=== PATIENT | female | born 2000 | race Caucasian/White ===

== ENCOUNTER → 2020-04-23 | Outpatient (REF) | payer OTHER | LOC: M WUC 15:55 | PROVIDERS: ATTEND Nurse Practitioner Family | DX: J00 Acute nasopharyngitis [common cold] (principal) ==

== ENCOUNTER → 2020-05-27 | Outpatient (REF) | payer OTHER ==
[2020-05-27 18:08] LABS: LUTEINIZING HORMONE 7.4 mIU/mL; PROLACTIN 8.9 NG/ML
== END ==
LOC: M PLALAB 15:25
PROVIDERS: ATTEND Nurse Practitioner Women's Health
DX: R51.9 Headache, unspecified (principal); E22.1 Hyperprolactinemia; E28.2 Polycystic ovarian syndrome

== ENCOUNTER 2020-06-26 03:24 | Day surgery (SDC) | payer OTHER ==
[~2020-06-26] VITALS: Ht 175.3 cm; Wt 70.5 kg
[2020-06-26] VITALS (9 sets, daily range): BP systolic 99–123; BP diastolic 61–78
[2020-06-26] MEDS ORDERED: ACETAMINOPHEN TAB 650MG DOSE (2X325MG) PO PRN (03:30)
[2020-06-26] MEDS ORDERED: MORPHINE 2 MG/ML 1ML VIAL (J2270) IV PRN (03:30)
[2020-06-26] MEDS ORDERED: ONDANSETRON 4MG/2ML VIAL IV PRN ×2 (03:30→11:30)
[2020-06-26] MEDS ORDERED: PREN27TA3 PO (03:46)
[2020-06-26] MEDS ORDERED: VENL150C43 PO (03:46)
[2020-06-26] MEDS ORDERED: VERA40TA PO ×2 (03:46)
[2020-06-26] MEDS: LR 1,000 ML IV SCH ×3 (03:48→19:59)
[2020-06-26] MEDS: KETOROLAC 30 MG/ML 1ML VIAL IV PRN ×4 (05:03→22:37)
[2020-06-26] MEDS ORDERED: PIPERACILLIN/TAZOBACTAM SOD 3.375 GM in D5W MINI-BAG PLUS 50 ML IV SCH (08:00)
[2020-06-26] MEDS: PERCOCET 5MG/325MG TAB PO PRN ×3 (08:14→19:59)
[2020-06-26] MEDS ORDERED: MIDAZOLAM INJ 2MG/2ML VIAL (J2250 PER 1MG) As Ordered ONE (09:11)
[2020-06-26] MEDS ORDERED: fentaNYL 250 MCG/5 ML INJECTION (J3010) As Ordered ONE (09:11)
[2020-06-26] MEDS ORDERED: propofoL 200 MG/20 ML VIAL As Ordered ONE (09:12)
[2020-06-26] MEDS ORDERED: KETOROLAC 60MG 2ML VIAL As Ordered ONE (09:12)
[2020-06-26] MEDS ORDERED: dexameTHASONE 4 MG/ML 1ML VIAL (J1100 PER 1MG) As Ordered ONE (09:12)
[2020-06-26] MEDS ORDERED: ACETAMINOPHEN 1000MG 100ML IV BTL (OFIRMEV) (J0131 PER 10MG) As Ordered ONE (09:12)
[2020-06-26] MEDS ORDERED: ROCURONIUM BROMIDE 50 MG/5 ML VIAL As Ordered ONE (09:12)
[2020-06-26] MEDS ORDERED: LIDOCAINE 2% 100MG/5ML SDV (FOR ANES.) As Ordered ONE (09:12)
[2020-06-26] MEDS ORDERED: ONDANSETRON 4MG/2ML VIAL As Ordered ONE (09:12)
[2020-06-26] MEDS ORDERED: BUPIVACAINE HCL 0.25% 10ML VIAL As Ordered ONE (10:05)
[2020-06-26] MEDS ORDERED: LIDOCAINE 1% MDV 20ML VIAL As Ordered ONE (10:05)
[2020-06-26] MEDS ORDERED: NEOSTIGMINE 10MG/10ML VIAL (J2710 PER 0.5MG) As Ordered ONE (10:21)
[2020-06-26] MEDS ORDERED: GLYCOPYRROLATE INJ 0.2 MG/ML 2 ML VIAL As Ordered ONE (10:21)
[2020-06-26] MEDS ORDERED: fentaNYL 100 MCG/2 ML INJECTION (J3010) As Ordered ONE (11:08)
[2020-06-26] MEDS: fentaNYL 100 MCG/2 ML INJECTION (J3010) IV PRN ×4 (11:10→11:25)
[2020-06-26] MEDS ORDERED: HYDROMORPHONE HCL 0.5 MG/ 0.5 ML SYRINGE (J1170 PER 1) IV PRN (11:30)
[2020-06-26] MEDS ORDERED: LR 1,000 ML IV SCH (11:30)
[2020-06-26] MEDS ORDERED: METOCLOPRAMIDE INJ 10MG/2ML VIAL (J2765 PER 1) IV PRN (11:30)
[2020-06-26] MEDS ORDERED: oxyCODONE 5MG TAB PO PRN (11:30)
[2020-06-26] MEDS: PRENATAL VITAMINS CHEWABLE TABLET PO SCH (12:19)
[2020-06-26] MEDS: VENLAFAXINE **XR** 75MG CAPSULE PO SCH (12:19)
[2020-06-26] MEDS: VERAPAMIL 40 MG TAB PO SCH ×2 (12:19→19:59)
[2020-06-26] MEDS: MIRALAX *UNIT DOSE* 17GM PACKET PO SCH ×2 (12:19→19:58)
[2020-06-27 02:00] VITALS: BP 122/62
[2020-06-27] MEDS: PERCOCET 5MG/325MG TAB PO PRN (03:16)
[2020-06-27 06:00] VITALS: BP 109/53
[2020-06-27 09:20] VITALS: BP 109/53
[2020-06-27] MEDS: VERAPAMIL 40 MG TAB PO SCH (09:20)
[2020-06-27] MEDS: VENLAFAXINE **XR** 75MG CAPSULE PO SCH (09:20)
[2020-06-27] MEDS: PRENATAL VITAMINS CHEWABLE TABLET PO SCH (09:20)
[2020-06-27] MEDS: KETOROLAC 30 MG/ML 1ML VIAL IV PRN (09:21)
[2020-06-27] MEDS: MIRALAX *UNIT DOSE* 17GM PACKET PO SCH (09:21)
[2020-06-27 10:00] VITALS: BP 125/75
[2020-06-27] MEDS ORDERED: PERCOCET PO (13:00)
--- NOTE | 2020-07-06 10:27 | ROOPDOC ---
[facility] Report Of Operation Report of Operation DATE OF PROCEDURE: 06/26/20 PREPROCEDURE DIAGNOSES: acute appendicitis POSTPROCEDURE DIAGNOSES: mildly distended appendix, no acute inflammation PROCEDURE: Diagnostic Laparoscopy, Laparoscopic appendectomy. SURGEON: Aaron Bueno MD SHIPPING AND RECEIVING: MD ANESTHESIA: General Anesthesia ESTIMATED BLOOD LOSS: Approximately 10 mL. COMPLICATIONS: none. SPECIMEN: Appendix. PROCEDURE NOTE: Patient was transferred from [facility] where she presented with exacerbation of long-standing right-sided abdominal pain and underwent evaluation and was suspected to have acute appendicitis and CT and thus transferred to our service for further care. She has mild tenderness over the right upper quadrant less so at the right lower quadrant on my exam. CT does show some mild thickening of the appendix.. DESCRIPTION OF PROCEDURE: Patient received a dose of Zosyn perioperatively.Patient was brought to the operating room, placed supine on the table. Sequential compression device placed for DVT prophylaxis. General endotracheal anesthesia started. The abdomen prepped and draped in usual sterile fashion. After a surgical timeout, we began our surgery Entry into the abdomen done through an incision at the top of the umbilicus. Veress needle inserted on a controlled fashion. Intra-abdominal placement confir med with saline drop technique. CO2 insufflation started to a pressure of 15 mmHg. Using the same incision a 5 mm port was placed under direct vision of laparoscope. Insertion site was inspected for injury and none was found. He was placed on a Trendelenburg position the right side tilted to about 30 to allow for better visualization of the appendix. 2 5 mm working ports were placed at the suprapubic area and left lower quadrant area under direct vision, an 8 mm port exchanged at the umbilical camera port site. Operative findings: No free fluid noted. Most of the small bowel was covered with omentum that does not look inflamed. Liver is mildly enlarged but relatively smooth. Gallbladder is distended, minimally thick-walled but no evidence for acute inflammation. Both left and right ovaries were visualized and noted normal for her age, mildly enlarged uterus normal for her age. Small amount of serous fluid in the pelvis. The cecum is without any inflammation. The appendix is noted to be mildly fluid distended but no active inflammation. The mesoappendix is normal and non-thickened. No evidence for any fecalith or abnormal distention of the appendix. The appendix does not look to be acutely inflamed though I do not have any other possible explanation for her right-sided abdominal pain thus I decided to go ahead with the appendectomy. The appendix was grasped to pull the base of the appendix into view. The mesoappendix was divided using Harmonic scalpel down to the base. Two PDS Endoloops were placed to ligate the appendix at its base then divided with a Harmonic Scalpel the stump cauterized. Stump appears healthy. Appendix was then delivered into an Endo Catch bag through the 8 mm umbilical port site. . After re-insufflation the surgical site was inspected for hemostasis, Surrounding areas of the abdomen and inspected for fluid collections or signs of injury. The abdomen was deflated. All ports removed. All skin incisions closed with 4-0 Monocryl in a subcuticular fashion. Steri-Strips and gauze dressing used for wound coverage. Patient was promptly awake and extubated and brought to recovery room stable. All counts of sponges and instruments verified to be correct. AARON BUENO MD Jul 06, 2020 10:27
--- NOTE | 2020-07-13 09:16 | IPNPDOC ---
Text Note Date of Service The patient was seen on 06/27/20. NOTE Doing relatively well postoperatively. She underwent laparoscopic appendectomy last night. Intraoperative findings not consistent with acute appendicitis. She has been having this right sided abdominal pain for about 3 months now. She has been afebrile. Patient looks mildly uncomfortable complaining of pain over the epigastric and right upper quadrant area. Lung sounds are clear to auscultation bilaterally without wheezing Regular heart rate and rhythm Abdomen is soft, minimally distended. She has 3 port sites covered with glue without any significant erythema, drainage or surrounding ecchymosis. Mildly tender over the right lower quadrant area without guarding Impression and plan Right-sided abdominal pain I discussed with her my intraoperative findings. I don't think she has acute appendicitis with the way the appendix looks. Her symptoms are not consistent with acute appendicitis as this has been ongoing for 3 months now. Both left and right ovaries were visualized with out any large cysts. No signs of e ndometriosis. Her gallbladder is mildly distended but thin walled. At this point she is okay to go home. She will follow-up with. An outpatient. She may need further workup with regards to her abdominal pain including ultrasound of gallbladder, HIDA scan possibly endoscopy. JAYRO VICK MD Jul 13, 2020 09:16
== END 2020-06-27 15:01 | disposition home or self-care (01) ==
LOC: M SDC 03:24 → M MS5PR 03:25 → M SDC 06-27 15:01
PROVIDERS: ATTEND Surgery
DX: K35.890 Other acute appendicitis without perforation or gangrene (principal)
CPT/HCPCS: 44970; 88304; 96365; 96375; 96376; J0131; J1100; J1885; J2250; J2405; J2543; J2710; J3010; U0002

== ENCOUNTER 2020-07-12 12:41 | Emergency (ER) | payer OTHER ==
[~2020-07-12] VITALS: Ht 175.3 cm; Wt 67.7 kg
[~2020-07-12 12:41] MED LIST: PERCOCET PO; PREN27TA3 PO; VENL150C43 PO; VERA40TA PO
[2020-07-12] MEDS ORDERED: ACET-683 PO (13:01)
[2020-07-12] MEDS ORDERED: IBUP200C25 PO (13:01)
[2020-07-12] MEDS ORDERED: HYOSPOW (13:01)
[2020-07-12 14:33] LABS: BASO % 0.5 % (0.0-1.0); EOS % 0.7 % (0.0-3.0); HEMATOCRIT 37.3 % (36.0-47.0); HEMOGLOBIN 12.2 g/dl (12.0-15.5); LYMPH # 1.6 10^3/uL (1.5-5.0); LYMPH % 28.6 % (24.0-44.0); MEAN CORPUSCULAR HEMOGLOBIN 28.7 pg (27.0-33.0); MEAN CORPUSCULAR HGB CONC 32.7 g/dl (32.0-36.5); MEAN CORPUSCULAR VOLUME 87.8 fl (80.0-96.0); MONO # 0.4 10^3/uL (0.0-0.8); MONO % 7.6 % (0.0-5.0); NEUTROPHILS # 3.4 10^3/uL (1.5-8.5); NEUTROPHILS % 62.4 % (36.0-66.0); PLATELET COUNT, AUTOMATED 260 10^3/uL (150-450); RED BLOOD COUNT 4.25 10^6/uL (4.00-5.40); WHITE BLOOD COUNT 5.5 10^3/uL (4.0-10.0)
[2020-07-12 15:00] LABS: ALBUMIN 4.3 GM/DL (3.2-5.2); ALT/SGPT 19 U/L (12-78); BILIRUBIN,DIRECT < 0.1 MG/DL (0.0-0.2); BILIRUBIN,TOTAL 0.3 MG/DL (0.2-1.0); BLOOD UREA NITROGEN 8 MG/DL (7-18); CALCIUM LEVEL 9.4 MG/DL (8.5-10.1); CARBON DIOXIDE LEVEL 27 MEQ/L (21-32); CHLORIDE LEVEL 108 MEQ/L (98-107); CREATININE FOR GFR 0.66 MG/DL (0.55-1.30); GLOMERULAR FILTRATION RATE > 60.0 (>60); GLUCOSE, FASTING 82 MG/DL (70-100); HCG, SERUM QUALITATIVE POSITIVE (NEGATIVE); LIPASE 75 U/L (73-393); POTASSIUM SERUM 3.9 MEQ/L (3.5-5.1); SODIUM LEVEL 140 MEQ/L (136-145); TOTAL PROTEIN 7.8 GM/DL (6.4-8.2)
[2020-07-12] MEDS ORDERED: MORPHINE 4 MG/ML 1ML VIAL/SYRINGE (J2270) IV ONE (15:15)
[2020-07-12] MEDS ORDERED: ONDANSETRON 4MG/2ML VIAL IV ONE (15:15)
--- NOTE | 2020-07-12 15:51 | REP ---
INDICATION: severe right sided pain COMPARISON: None. TECHNIQUE: Transabdominal and transvaginal 1st trimester obstetrical ultrasound with color Doppler evaluation. FINDINGS: Ultrasound examination demonstrates anteverted uterus measuring 9.6 x 4.4 x 6.0 cm. A gestational sac with yolk sac is identified. No pole noted at this time. Mean sac diameter of 10.5 mm corresponds to 5 weeks 5 days gestational age. Bilateral maternal ovaries are normal in vascularity without torsion. Right ovary measures 2.2 x 1.3 x 2.7 cm (RI 0.65). Left ovary measures 3.8 x 3.0 x 2.5 cm (RI 0.47) with 1.6 cm complex likely corpus luteum cyst. IMPRESSION: 1. Gestational sac with yolk sac. No pole yet identified. Mean sac diameter corresponds to 5 weeks 5 days gestational age. Correlation with serial HCG levels and repeat ultrasound may be warranted. Differential diagnosis includes blighted ovum and less likely ectopic cannot be excluded. <Electronically signed by Deion Sethi > 07/12/20 [id number]
--- NOTE | 2020-07-12 17:28 | REPVR ---
PROCEDURE INFORMATION: Exam: US Abdomen, Limited; Right Upper Quadrant Exam date and time: 07/12/2020 5:22 PM Age: 20 years old Clinical indication: Abdominal pain; Epigastric; Additional info: Right upper quadrant pain TECHNIQUE: Imaging protocol: US abdomen. Real time ultrasound with image documentation. Limited exam focused on the right upper quadrant. COMPARISON: No relevant prior studies available. FINDINGS: Liver: Normal. No masses. Gallbladder: Gallbladder region tender to palpation with the ultrasound transducer. No significant gallbladder thickening, pericholecystic fluid, sludge or calculi demonstrated. Common bile duct: The common bile duct measures 2.4 mm. No mass or choledocholithiasis. Pancreas: Visualized pancreas is unremarkable. Right kidney: Right kidney measures 10.6 x 5.2 x 4.6 cm. IMPRESSION: Gallbladder region tender to palpation with the ultrasound transducer. No significant gallbladder thickening, pericholecystic fluid, sludge or calculi demonstrated. Electronically signed by: Joel Harrington On 07/12/2020 17:28:07 PM
[2020-07-12 18:18] VITALS: BP 130/76
== END 2020-07-12 18:19 | disposition home or self-care (01) ==
LOC: M ED 12:41
DX: O36.80X0 Pregnancy with inconclusive fetal viability, not applicable or unspecified (principal); Z3A.01 Less than 8 weeks gestation of pregnancy
CPT/HCPCS: 36415; 76705; 76801; 76817; 80048; 80076; 81001; 83690; 84702; 84703; 85025; 93976; 96374; 96375; 99284; J2270; J2405

== ENCOUNTER → 2020-07-14 | Outpatient (CLI) | payer OTHER ==
[~2020-07-14] MED LIST changes: +ACET-683 PO; +HYOSPOW; +IBUP200C25 PO; +METO10TA2; +ONDA-83; +PROM12.56 PO; +VENL75CA47
== END ==
LOC: M LAB 09:21
PROVIDERS: ATTEND Physician Assistant
DX: O99.891 Other specified diseases and conditions complicating pregnancy (principal); R10.9 Unspecified abdominal pain; Z3A.00 Weeks of gestation of pregnancy not specified

== ENCOUNTER 2020-07-18 14:14 | Emergency (ER) | payer OTHER ==
[~2020-07-18] VITALS: Ht 175.3 cm; Wt 68.1 kg
[~2020-07-18 14:14] MED LIST changes: -METO10TA2; -ONDA-83; -PROM12.56 PO; -VENL75CA47
[2020-07-18] MEDS ORDERED: PROM12.56 PO (14:22)
[2020-07-18] MEDS ORDERED: ONDANSETRON 4MG/2ML VIAL IV ONE (15:30)
[2020-07-18] MEDS ORDERED: NS 1,000 ML IV ONE ×2 (15:30→17:00)
[2020-07-18 16:15] LABS: BASO % 0.2 % (0.0-1.0); EOS # 0.1 10^3/uL (0.0-0.5); EOS % 0.9 % (0.0-3.0); HEMATOCRIT 38.1 % (36.0-47.0); HEMOGLOBIN 12.6 g/dl (12.0-15.5); LYMPH # 1.7 10^3/uL (1.5-5.0); LYMPH % 19.8 % (24.0-44.0); MEAN CORPUSCULAR HEMOGLOBIN 29.1 pg (27.0-33.0); MEAN CORPUSCULAR HGB CONC 33.1 g/dl (32.0-36.5); MONO # 0.7 10^3/uL (0.0-0.8); NEUTROPHILS # 6.1 10^3/uL (1.5-8.5); PLATELET COUNT, AUTOMATED 236 10^3/uL (150-450); RED BLOOD COUNT 4.33 10^6/uL (4.00-5.40); WHITE BLOOD COUNT 8.6 10^3/uL (4.0-10.0)
[2020-07-18 16:45] LABS: ALBUMIN 3.9 GM/DL (3.2-5.2); ALT/SGPT 13 U/L (12-78); AMYLASE 41 U/L (25-115); BILIRUBIN,DIRECT 0.1 MG/DL (0.0-0.2); BILIRUBIN,TOTAL 0.4 MG/DL (0.2-1.0); BLOOD UREA NITROGEN 9 MG/DL (7-18); CALCIUM LEVEL 8.9 MG/DL (8.5-10.1); CARBON DIOXIDE LEVEL 29 MEQ/L (21-32); CHLORIDE LEVEL 105 MEQ/L (98-107); GLOMERULAR FILTRATION RATE > 60.0 (>60); GLUCOSE, FASTING 85 MG/DL (70-100); LIPASE 143 U/L (73-393); POTASSIUM SERUM 4.1 MEQ/L (3.5-5.1); SODIUM LEVEL 140 MEQ/L (136-145); TOTAL PROTEIN 7.5 GM/DL (6.4-8.2)
--- NOTE | 2020-07-18 16:47 | REP ---
INDICATION: n/v preg COMPARISON: None. TECHNIQUE: Transabdominal 1st trimester obstetrical ultrasound with color Doppler evaluation. FINDINGS: Single live early intrauterine is appreciated. Gestational sac with yolk sac and pole identified. Panther Burn-rump length of 5 mm corresponds to 6 weeks 1 day gestational age with estimated date of delivery 03/12/2021. heart rate equals 126 beats per minute. Two areas of subchorionic hemorrhage are identified measuring 11 x 6 x 17 mm inferior to the sac and 12 x 11 x 11 mm along the right side of the gestational sac. IMPRESSION: 1. Single live early intrauterine at 6 weeks 1 day gestational age. Complete anatomical assessment should be performed and 19-20 weeks. 2. Two small areas of subchorionic hemorrhage identified. <Electronically signed by Deion Sethi > 07/18/20 [id number]
[2020-07-18] MEDS ORDERED: PROMETHAZINE INJ 25 MG/ML VIAL (J2550) IV ONE (17:15)
[2020-07-18 17:58] VITALS: BP 100/74
== END 2020-07-18 18:28 | disposition home or self-care (01) ==
LOC: M ED 14:14
DX: O21.9 Vomiting of pregnancy, unspecified (principal); O20.8 Other hemorrhage in early pregnancy; Z3A.01 Less than 8 weeks gestation of pregnancy; Z79.899 Other long term (current) drug therapy
CPT/HCPCS: 76801; 80048; 80076; 81001; 82150; 83690; 85025; 87086; 96361; 96374; 96375; 99284; J2405

== ENCOUNTER 2020-07-24 13:40 | Emergency (ER) | payer OTHER ==
[~2020-07-24] VITALS: Ht 175.3 cm; Wt 65.2 kg
[~2020-07-24 13:40] MED LIST changes: +PROM12.56 PO
[2020-07-24] MEDS ORDERED: ONDA-83 (13:49)
[2020-07-24] MEDS ORDERED: METO10TA2 (13:49)
[2020-07-24] MEDS ORDERED: VENL75CA47 (13:49)
[2020-07-24] MEDS ORDERED: NS 1,000 ML IV ONE (14:15)
[2020-07-24 14:21] LABS: BASO % 0.3 % (0.0-1.0); EOS # 0.1 10^3/uL (0.0-0.5); EOS % 0.7 % (0.0-3.0); HEMATOCRIT 40.6 % (36.0-47.0); HEMOGLOBIN 12.8 g/dl (12.0-15.5); LYMPH # 1.4 10^3/uL (1.5-5.0); LYMPH % 15.8 % (24.0-44.0); MEAN CORPUSCULAR HEMOGLOBIN 28.3 pg (27.0-33.0); MEAN CORPUSCULAR HGB CONC 31.5 g/dl (32.0-36.5); MEAN CORPUSCULAR VOLUME 89.6 fl (80.0-96.0); MONO # 0.7 10^3/uL (0.0-0.8); MONO % 7.5 % (0.0-5.0); NEUTROPHILS # 6.7 10^3/uL (1.5-8.5); NEUTROPHILS % 75.4 % (36.0-66.0); PLATELET COUNT, AUTOMATED 256 10^3/uL (150-450); RED BLOOD COUNT 4.53 10^6/uL (4.00-5.40); WHITE BLOOD COUNT 8.9 10^3/uL (4.0-10.0)
[2020-07-24] MEDS ORDERED: METOCLOPRAMIDE INJ 10MG/2ML VIAL (J2765 PER 1) IV ONE (14:30)
[2020-07-24 15:07] LABS: ALBUMIN 4.2 GM/DL (3.2-5.2); ALT/SGPT 13 U/L (12-78); BILIRUBIN,DIRECT 0.1 MG/DL (0.0-0.2); BILIRUBIN,TOTAL 0.4 MG/DL (0.2-1.0); BLOOD UREA NITROGEN 12 MG/DL (7-18); CALCIUM LEVEL 9.2 MG/DL (8.5-10.1); CARBON DIOXIDE LEVEL 23 MEQ/L (21-32); CHLORIDE LEVEL 104 MEQ/L (98-107); CREATININE FOR GFR 0.63 MG/DL (0.55-1.30); GLOMERULAR FILTRATION RATE > 60.0 (>60); GLUCOSE, FASTING 72 MG/DL (70-100); HCG, SERUM QUANTITATIVE 90695 MIU/ML; LIPASE 104 U/L (73-393); POTASSIUM SERUM 3.7 MEQ/L (3.5-5.1); SODIUM LEVEL 138 MEQ/L (136-145); TOTAL PROTEIN 7.9 GM/DL (6.4-8.2)
--- NOTE | 2020-07-24 15:28 | REP ---
INDICATION: worsening RUQ pain, neg us dec COMPARISON: 07/12/2020 TECHNIQUE: Real time branch scale ultrasound examination using curved array transducer. FINDINGS: Liver and pancreas are normal in contour, size, and echogenicity without focal hepatic or pancreatic lesions identified. The gallbladder is normal and without gallstones, wall thickening, or pericholecystic fluid. No biliary ductal dilatation is appreciated and the common bile duct measures 2.1 mm diameter. Right kidney is normal in reniform shape without hydronephrosis and measures 10.6 x 5.4 x 4.0 cm. No ascites in the visualized right upper quadrant. IMPRESSION: Normal limited right upper quadrant ultrasound <Electronically signed by Deion Sethi > 07/24/20 [id number]
[2020-07-24 15:50] VITALS: BP 111/61
== END 2020-07-24 15:59 | disposition home or self-care (01) ==
LOC: M ED 13:40
DX: O26.891 Other specified pregnancy related conditions, first trimester (principal); R10.11 Right upper quadrant pain; O21.9 Vomiting of pregnancy, unspecified; Z3A.01 Less than 8 weeks gestation of pregnancy; Z79.899 Other long term (current) drug therapy
CPT/HCPCS: 36415; 76705; 80048; 80076; 83690; 84702; 85025; 96361; 96374; 99284; J2765

== ENCOUNTER → 2020-08-16 | Outpatient (REF) | payer OTHER ==
[~2020-08-16] MED LIST changes: +METO10TA2; +ONDA-83; +VENL75CA47
[2020-08-16 16:01] LABS: HEMATOCRIT 37.6 % (36.0-47.0); HEMOGLOBIN 12.6 g/dl (12.0-15.5); MEAN CORPUSCULAR HEMOGLOBIN 30.4 pg (27.0-33.0); MEAN CORPUSCULAR HGB CONC 33.5 g/dl (32.0-36.5); MEAN CORPUSCULAR VOLUME 90.8 fl (80.0-96.0); PLATELET COUNT, AUTOMATED 276 10^3/uL (150-450); RED BLOOD COUNT 4.14 10^6/uL (4.00-5.40); WHITE BLOOD COUNT 8.8 10^3/uL (4.0-10.0)
[2020-08-16 17:14] LABS: HEPATITIS C VIRUS ABY INDEX < 0.0 INDEX (<0.8); HIV 1&2 SCREEN CENTAUR NEGATIVE (NEGATIVE)
[2020-08-16 17:31] LABS: CHLAMYDIA DNA AMPLIFICATION NEGATIVE (NEGATIVE); GC DNA AMPLIFICATION NEGATIVE (NEGATIVE)
== END ==
LOC: M PLALAB 14:01
PROVIDERS: ATTEND Obstetrics & Gynecology
DX: Z34.01 Encounter for supervision of normal first pregnancy, first trimester (principal)

== ENCOUNTER → 2020-09-01 | Outpatient (CLI) | payer OTHER | LOC: M PLALAB 10:30 | PROVIDERS: ATTEND Advanced Practice Midwife | DX: Z34.81 Encounter for supervision of other normal pregnancy, first trimester (principal); Z3A.00 Weeks of gestation of pregnancy not specified ==

== ENCOUNTER → 2020-09-13 | Outpatient (CLI) | payer OTHER | LOC: M WHC 11:09 | PROVIDERS: ATTEND Obstetrics & Gynecology | DX: Z34.92 Encounter for supervision of normal pregnancy, unspecified, second trimester (principal); Z3A.14 14 weeks gestation of pregnancy; Z53.9 Procedure and treatment not carried out, unspecified reason ==

== ENCOUNTER → 2020-09-13 | Outpatient (REF) | payer OTHER | LOC: M SFHCWAGY 16:57 | PROVIDERS: ATTEND Obstetrics & Gynecology | DX: Z3A.14 14 weeks gestation of pregnancy (principal) | CPT/HCPCS: 87086; G0463 ==

== ENCOUNTER → 2020-10-11 | Outpatient (CLI) | payer OTHER | LOC: M WHC 10:34 | PROVIDERS: ATTEND Obstetrics & Gynecology | DX: Z36.9 Encounter for antenatal screening, unspecified (principal); Z3A.19 19 weeks gestation of pregnancy ==

== ENCOUNTER → 2020-10-14 | Outpatient (REF) | payer OTHER | LOC: M SFHCWAGY 17:07 | PROVIDERS: ATTEND Advanced Practice Midwife | DX: N76.0 Acute vaginitis (principal) ==

== ENCOUNTER → 2020-11-12 | Outpatient (CLI) | payer OTHER ==
--- NOTE | 2020-11-12 13:22 | REP ---
INDICATION: F/U ANATOMY COMPARISON: 10/11/2020 TECHNIQUE: Transabdominal obstetrical ultrasound with color Doppler evaluation. FINDINGS: Examination demonstrates a single live intrauterine in breech presentation. motion is identified by technologist. Placenta is noted posterior and grade 0 without evidence for placenta previa or abruption. Amniotic fluid volume is normal. Cervix measures 3.4 cm in length and appears closed. Gestational age by LMP 22 weeks 5 days with ANUP 03/13/2021. Gestational age by current measurements 23 weeks 3 days with ANUP 03/08/2021. FHR equals 145 beats per minute. Estimated weight 611 grams (84thpercentile). Anatomical assessment demonstrates normal nose/lips and diaphragm. Limited evaluation of the four-chamber heart and ventricular outflow tracts again noted along with echogenic focus in the left cardiac ventricle consistent with prominent chordae tendineae. The previously identified choroid plexus cyst has resolved.. IMPRESSION: 1. Single live intrauterine in breech presentation demonstrating appropriate interval growth. 2. Continued limited evaluation of the heart/ventricular outflow tracts. <Electronically signed by Deion Sethi > 11/12/20 [id number]
== END ==
LOC: M WHC 11:20
PROVIDERS: ATTEND Advanced Practice Midwife
DX: Z34.92 Encounter for supervision of normal pregnancy, unspecified, second trimester (principal); Z3A.22 22 weeks gestation of pregnancy

== ENCOUNTER → 2020-11-15 | Outpatient (REF) | payer OTHER | LOC: M PLALAB 12:12 | PROVIDERS: ATTEND Obstetrics & Gynecology | DX: Z53.9 Procedure and treatment not carried out, unspecified reason (principal) ==

== ENCOUNTER → 2020-12-13 | Outpatient (CLI) | payer OTHER ==
--- NOTE | 2020-12-13 11:24 | REP ---
INDICATION: F/U ANATOMY COMPARISON: 11/15/2020 TECHNIQUE: Transabdominal obstetrical ultrasound with color Doppler evaluation. FINDINGS: Examination demonstrates a single live intrauterine in cephalic presentation. motion is identified by technologist. Placenta is noted posterior and grade 1 without evidence for placenta previa or abruption. Amniotic fluid volume is normal. Cervix measures 4.0 cm in length and appears closed.. Gestational age by LMP 27 weeks 1 day with ANUP 03/13/2021. Gestational age by current measurements 28 weeks 1 day with ANUP 03/06/2021. FHR equals 142 beats per minute. Estimated weight 1149 grams (70thpercentile). Anatomical assessment demonstrates normal structures including cranium, choroid plexus, cavum, cerebellum/posterior fossa, lungs, stomach, cord insertion/three-vessel cord, kidneys/bladder, spine, and extremities. Previously noted choroid plexus cysts have resolved. There is continued limited evaluation the orbits and four-chamber heart which now includes a small echogenic focus in the left cardiac ventricle likely chordae tendineae. IMPRESSION: Single live intrauterine in cephalic presentation. Continued limited anatomical evaluation as described above. <Electronically signed by Deion Sethi > 12/13/20 [id number]
== END ==
LOC: M WHC 10:27
PROVIDERS: ATTEND Obstetrics & Gynecology
DX: Z34.82 Encounter for supervision of other normal pregnancy, second trimester (principal)
CPT/HCPCS: 36415; 76816; 82950; 85027; G0463

== ENCOUNTER → 2020-12-13 | Outpatient (REF) | payer OTHER ==
[2020-12-13 13:18] LABS: HEMATOCRIT 36.3 % (36.0-47.0); MEAN CORPUSCULAR HEMOGLOBIN 30.4 pg (27.0-33.0); MEAN CORPUSCULAR HGB CONC 33.1 g/dl (32.0-36.5); MEAN CORPUSCULAR VOLUME 91.9 fl (80.0-96.0); PLATELET COUNT, AUTOMATED 240 10^3/uL (150-450); RED BLOOD COUNT 3.95 10^6/uL (4.00-5.40); WHITE BLOOD COUNT 8.8 10^3/uL (4.0-10.0)
== END ==
LOC: M PLALAB 11:03
PROVIDERS: ATTEND Obstetrics & Gynecology
DX: Z34.82 Encounter for supervision of other normal pregnancy, second trimester (principal); Z3A.23 23 weeks gestation of pregnancy

== ENCOUNTER → 2021-01-10 | Outpatient (CLI) | payer OTHER ==
--- NOTE | 2021-01-10 14:38 | REP ---
INDICATION: F/U ANATOMY. COMPARISON: Comparison sonography December 13, 2020.. TECHNIQUE: Transabdominal obstetric sonography. FINDINGS: Scanning through the gravid uterus demonstrates a viable single intrauterine gestation in cephalic lie. motion is observed and heart rate is recorded at 156 beats per minute. A posterior placenta is seen, grade 2, without evidence of placenta previa. No extrauterine abnormality is observed. Amniotic fluid is subjectively normal. No anomaly is seen. The following anatomic structures are identified and felt to be sonographically unremarkable: cranium, choroid plexus, cavum, cerebellum and posterior fossa, face and profile, lungs, four-chamber heart with left and right ventricular outflow tract views, diaphragm, left-sided stomach, abdominal wall cord insertion, three-vessel umbilical cord, kidneys and bladder, and lower extremities. A small echogenic focus is seen in the left ventricle. Previously noted choroid plexus cysts are no longer seen. The upper extremities and spine are less than optimally seen. Biometry chart: BPD 7.9 cm, 31 weeks 4 days Head circumference 29.2 cm, 32 weeks 1 day Abdominal circumference 27.7 cm, 31 weeks 6 days Femur length 6.2 cm, 32 weeks 0 days HC AC ratio normal 1.05 Cephalic index normal 0.75 Estimated weight 1857 g, 4 lb 1 oz, 63rd percentile for 31 weeks 1 day SD ratio in the umbilical cord artery by Doppler normal 2.65 VALENTÍN normal 11.0 cm IMPRESSION: Viable single intrauterine gestation at 32 weeks 0 days by today's composite sonographic criteria. ANUP by today's sonography March 07, 2021. No complication identified. Expected gestational age estimate from known ANUP is 30/1 weeks 1 day. ANUP 13 March 2021. <Electronically signed by Sunny Ochoa > 01/10/21 [id number]
== END ==
LOC: M WHC 11:59
PROVIDERS: ATTEND Obstetrics & Gynecology
DX: Z36.89 Encounter for other specified antenatal screening (principal); Z3A.27 27 weeks gestation of pregnancy

== ENCOUNTER → 2021-02-09 | Outpatient (REF) | payer OTHER ==
[~2021-02-09] MED LIST changes: +DOK1CAP7 PO; +IBUP80TA PO; +PRENTAB9 PO
== END ==
LOC: M PLALAB 13:42
PROVIDERS: ATTEND Obstetrics & Gynecology
DX: Z34.93 Encounter for supervision of normal pregnancy, unspecified, third trimester (principal); Z3A.35 35 weeks gestation of pregnancy

== ENCOUNTER 2021-02-14 18:02 | Inpatient (IN) | payer OTHER ==
[2021-02-14] VITALS (9 sets, daily range): BP systolic 118–140; BP diastolic 60–85
[~2021-02-14] VITALS: Ht 172.7 cm; Wt 88.5 kg
[~2021-02-14 18:02] MED LIST changes: -DOK1CAP7 PO; -IBUP80TA PO; -PRENTAB9 PO
[2021-02-14] MEDS ORDERED: HOME MED LIST COMPLETE! XX SCH (18:35)
[2021-02-14] MEDS ORDERED: PRENTAB9 PO (18:37)
[2021-02-14] MEDS ORDERED: LR 1,000 ML IV SCH (19:35)
[2021-02-14] MEDS ORDERED: LACTATED RINGER'S 1000 ML IV ONE (19:35)
[2021-02-14 20:00] LABS: HEMATOCRIT 38.3 % (36.0-47.0); HEMOGLOBIN 12.5 g/dl (12.0-15.5); MEAN CORPUSCULAR HEMOGLOBIN 28.3 pg (27.0-33.0); MEAN CORPUSCULAR HGB CONC 32.6 g/dl (32.0-36.5); MEAN CORPUSCULAR VOLUME 86.8 fl (80.0-96.0); PLATELET COUNT, AUTOMATED 221 10^3/uL (150-450); RED BLOOD COUNT 4.41 10^6/uL (4.00-5.40); WHITE BLOOD COUNT 7.7 10^3/uL (4.0-10.0)
[2021-02-14] MEDS ORDERED: BETAMETHASONE SOLUSPAN 6MG/ML 5ML VIAL (J0702 PER 3MG) IM SCH (20:00)
[2021-02-14] MEDS ORDERED: PROMETHAZINE INJ 25 MG/ML VIAL (J2550) IV ONE (20:35)
[2021-02-14] MEDS ORDERED: BUTORPHANOL 2 MG/ML INJ (J0595) IV ONE (20:35)
[2021-02-14] MEDS ORDERED: METHYLERGONOVINE MALEATE 0.2 MG/ML VIAL (J2210) IM PRN (22:30)
[2021-02-14] MEDS ORDERED: TRANEXAMIC ACID INJection 1,000 MG in NS 100 ML IV PRN (22:30)
[2021-02-14] MEDS ORDERED: CARBOPROST TROMETHAMINE 250 MCG/ML AMP IM PRN (22:30)
[2021-02-14] MEDS ORDERED: OXYTOCIN DRIP 30 UNITS in IV 1 EA IV PRN (22:30)
[2021-02-14] MEDS ORDERED: LIDOCAINE 1% MDV 20ML VIAL INFIL PRN (22:30)
[2021-02-14] MEDS ORDERED: FENTANYL 2MCG/ML ROPIVACAINE 0.2% IN 0.9% NACL 100ML IVBAG As Ordered ONE (23:01)
[2021-02-14] MEDS: LR 1,000 ML IV SCH (23:25)
[2021-02-14] MEDS: VERAPAMIL 80MG TABLET PO SCH (23:54)
[2021-02-15] VITALS (51 sets, daily range): BP systolic 99–136; BP diastolic 56–83
[2021-02-15] MEDS ORDERED: EPIDURAL COMMENT XX SCH (00:50)
[2021-02-15] MEDS: FENTANYL/ROPIVACAINE/NACL BAG 100 ML EPIDURAL SCH ×2 (00:50→10:29)
[2021-02-15] MEDS ORDERED: REFRIGERATOR IV KEYS XX PRN (00:50)
[2021-02-15] MEDS ORDERED: diphenhydrAMINE 50MG/ML VIAL (J1200) IV PRN ×2 (00:50→12:55)
[2021-02-15] MEDS ORDERED: LACTATED RINGER'S 1000 ML IV PRN (00:50)
[2021-02-15] MEDS ORDERED: EPIDURAL/PCA KEYS XX PRN (00:50)
[2021-02-15] MEDS ORDERED: ePHEDrine SULFATE 25 MG/5 ML(5MG/ML) SYRINGE IV PRN (00:50)
[2021-02-15] MEDS ORDERED: ONDANSETRON 4MG/2ML VIAL IV PRN ×4 (00:50→14:05)
[2021-02-15] MEDS ORDERED: NALOXONE INJ 0.4MG/1ML VIAL (J2310 PER 1MG) IV PRN ×3 (00:50→12:55)
[2021-02-15] MEDS ORDERED: OXYTOCIN DRIP 30 UNITS in IV 1 EA IV SCH ×2 (03:35→13:35)
[2021-02-15] MEDS: LR 1,000 ML IV SCH ×4 (04:00→21:35)
[2021-02-15] MEDS ORDERED: BETAMETHASONE SOLUSPAN 6MG/ML 5ML VIAL (J0702 PER 3MG) IM ONE (07:40)
[2021-02-15] MEDS: VERAPAMIL 80MG TABLET PO SCH ×2 (09:24→21:15)
[2021-02-15] MEDS ORDERED: BICITRA 30ML SOLN UDC PO ONE (10:40)
[2021-02-15] MEDS ORDERED: ceFAZolin SOD 2 GM in IV 1 EA IV ONE (10:40)
[2021-02-15] MEDS ORDERED: AZITHROMYCIN INJ 500 MG, VIAL MATE ADAPTER 1 EACH in NS 250 ML IV ONE (10:40)
[2021-02-15] MEDS ORDERED: ONDANSETRON 4MG/2ML VIAL As Ordered ONE (12:47)
[2021-02-15] MEDS ORDERED: OXYTOCIN 30 UNITS IN 0.9% NaCl 500ML IV BAG (J2590) As Ordered ONE ×2 (12:47→13:33)
[2021-02-15] MEDS ORDERED: KETOROLAC 60MG 2ML VIAL As Ordered ONE (12:47)
[2021-02-15] MEDS ORDERED: dexameTHASONE 4 MG/ML 1ML VIAL (J1100 PER 1MG) As Ordered ONE (12:47)
[2021-02-15] MEDS ORDERED: PHENYLephrine 500MCG 5ML (100MCG/ML) SYRINGE As Ordered ONE (12:47)
[2021-02-15] MEDS ORDERED: LIDOCAINE 2% W/EPINEPHRINE 20ML VIAL **PRES FREE As Ordered ONE (12:47)
[2021-02-15] MEDS ORDERED: SODIUM BICARBONATE 8.4% INJ 50MEQ 50 ML VIAL As Ordered ONE (12:47)
[2021-02-15] MEDS ORDERED: MORPHINE PRES-FREE INJ 10 MG/10 ML VIAL (J2274) As Ordered ONE (12:47)
[2021-02-15] MEDS ORDERED: ACETAMINOPHEN 1000MG 100ML IV BTL (OFIRMEV) (J0131 PER 10MG) As Ordered ONE (12:50)
[2021-02-15] MEDS ORDERED: METOCLOPRAMIDE INJ 10MG/2ML VIAL (J2765 PER 1) IV PRN ×2 (12:55→14:05)
[2021-02-15] MEDS ORDERED: NALBUPHINE HCL 10 MG/ML AMP (J2300) IV PRN (12:55)
[2021-02-15 13:23] LABS: CORD GAS ABE A -3.3; CORD GAS HCO3 A 24.5 MEQ/L; CORD GAS O2 SAT A 21.9 %; CORD GAS PCO2 A 55.4 mmHg; CORD GAS PH A 7.263 UNITS; CORD GAS PO2 A 13.7 mmHg; CORD GAS SBC A 20.1 MEQ/L; CORD GAS TCO2 A 26.2 MEQ/L
[2021-02-15] MEDS ORDERED: METOCLOPRAMIDE INJ 10MG/2ML VIAL (J2765 PER 1) As Ordered ONE (13:25)
[2021-02-15 13:26] LABS: CORD GAS ABE V -4.6; CORD GAS HCO3 V 22.1 MEQ/L; CORD GAS O2 SAT V 54.6 %; CORD GAS PCO2 V 47.2 mmHg; CORD GAS PH V 7.289 UNITS; CORD GAS PO2 V 28.1 mmHg; CORD GAS SBC V 19.8 MEQ/L; CORD GAS TCO2 V 23.6 MEQ/L
[2021-02-15] MEDS ORDERED: MEASLES,MUMPS,RUBELLA VACCINE INJ (MMR-II) (90707) SC SCH (13:35)
[2021-02-15] MEDS ORDERED: RHOGAM 300 MCG (1500 IU) INJ (J2790) IM SCH (13:35)
[2021-02-15] MEDS ORDERED: IBUP80TA PO (13:48)
[2021-02-15] MEDS ORDERED: PERCOCET PO (13:48)
[2021-02-15] MEDS ORDERED: DOK1CAP4 PO (13:48)
[2021-02-15] MEDS ORDERED: PERCOCET 5MG/325MG TAB PO PRN (14:05)
[2021-02-15] MEDS ORDERED: LR 1,000 ML IV SCH (14:05)
[2021-02-15] MEDS ORDERED: fentaNYL 100 MCG/2 ML INJECTION IV PRN (14:05)
[2021-02-15] MEDS: KETOROLAC 30 MG/ML 1ML VIAL IV SCH (18:37)
[2021-02-16] VITALS (12 sets, daily range): BP systolic 114–142; BP diastolic 68–78
[2021-02-16] MEDS: DOCUSATE SODIUM 100MG CAPSULE PO SCH ×3 (00:05→20:14)
[2021-02-16] MEDS: KETOROLAC 30 MG/ML 1ML VIAL IV SCH ×2 (02:08→06:58)
[2021-02-16] MEDS: LR 1,000 ML IV SCH ×2 (05:35→13:35)
[2021-02-16 06:43] LABS: HEMATOCRIT 26.6 % (36.0-47.0); MEAN CORPUSCULAR HEMOGLOBIN 28.9 pg (27.0-33.0); MEAN CORPUSCULAR HGB CONC 32.7 g/dl (32.0-36.5); MEAN CORPUSCULAR VOLUME 88.4 fl (80.0-96.0); PLATELET COUNT, AUTOMATED 189 10^3/uL (150-450); RED BLOOD COUNT 3.01 10^6/uL (4.00-5.40); WHITE BLOOD COUNT 16.8 10^3/uL (4.0-10.0)
[2021-02-16 06:46] LABS: HEMOGLOBIN 8.7 g/dl (12.0-15.5)
[2021-02-16] MEDS: PRENATAL VITAMINS CHEWABLE TABLET PO SCH (09:39)
[2021-02-16] MEDS: VERAPAMIL 80MG TABLET PO SCH ×2 (09:40→20:14)
[2021-02-16] MEDS ORDERED: diphenhydrAMINE 50MG CAP PO ONE (11:30)
[2021-02-16] MEDS ORDERED: ACETAMINOPHEN 500 MG TAB PO ONE (11:30)
[2021-02-16] MEDS: IBUPROFEN 800 MG TAB PO SCH (17:58)
[2021-02-16] MEDS: PERCOCET 5MG/325MG TAB PO PRN (20:14)
[2021-02-17] MEDS: IBUPROFEN 800 MG TAB PO SCH ×4 (01:13→22:00)
[2021-02-17 02:00] VITALS: BP 127/81
[2021-02-17] MEDS: PERCOCET 5MG/325MG TAB PO PRN ×3 (03:04→22:01)
[2021-02-17 04:30] VITALS: BP 135/78
[2021-02-17 05:40] VITALS: BP 122/81
[2021-02-17] MEDS: SIMETHICONE 80MG CHEW TAB PO PRN ×2 (05:50→15:05)
[2021-02-17] MEDS: DOCUSATE SODIUM 100MG CAPSULE PO SCH ×2 (09:08→20:53)
[2021-02-17] MEDS: PRENATAL VITAMINS CHEWABLE TABLET PO SCH (09:09)
[2021-02-17] MEDS: VERAPAMIL 80MG TABLET PO SCH ×2 (09:52→21:44)
[2021-02-17] MEDS: ACETAMINOPHEN 500 MG TAB PO PRN ×2 (10:20→16:11)
[2021-02-17] MEDS ORDERED: ONDANSETRON 4 MG TAB PO PRN (17:50)
[2021-02-17 18:02] VITALS: BP 129/93
[2021-02-17 21:44] VITALS: BP 130/82
[2021-02-18] MEDS: PERCOCET 5MG/325MG TAB PO PRN (03:29)
[2021-02-18 03:30] VITALS: BP 141/91
[2021-02-18 03:45] VITALS: BP 140/90
[2021-02-18] MEDS ORDERED: LR 500 ML IV ONE (03:45)
[2021-02-18 04:23] LABS: HEMATOCRIT 33.1 % (36.0-47.0); HEMOGLOBIN 10.9 g/dl (12.0-15.5); MEAN CORPUSCULAR HEMOGLOBIN 29.4 pg (27.0-33.0); MEAN CORPUSCULAR HGB CONC 32.9 g/dl (32.0-36.5); MEAN CORPUSCULAR VOLUME 89.2 fl (80.0-96.0); PLATELET COUNT, AUTOMATED 221 10^3/uL (150-450); RED BLOOD COUNT 3.71 10^6/uL (4.00-5.40); WHITE BLOOD COUNT 14.5 10^3/uL (4.0-10.0)
[2021-02-18 05:29] VITALS: BP 129/74
[2021-02-18] MEDS: IBUPROFEN 800 MG TAB PO SCH (06:41)
[2021-02-18] MEDS: ACETAMINOPHEN 500 MG TAB PO PRN (07:28)
[2021-02-18 08:15] VITALS: BP 132/66
[2021-02-18] MEDS: PRENATAL VITAMINS CHEWABLE TABLET PO SCH (08:15)
[2021-02-18] MEDS: DOCUSATE SODIUM 100MG CAPSULE PO SCH (08:16)
[2021-02-18] MEDS: VERAPAMIL 80MG TABLET PO SCH (08:16)
== END 2021-02-18 11:50 | disposition home or self-care (01) | DRG 771 ==
LOC: M LDO 18:02 → M LDI 22:26 → M OBS 02-15 15:42
PROVIDERS: ADMIT Advanced Practice Midwife; ATTEND Obstetrics & Gynecology
PROC: 10D00Z1 Extraction of Products of Conception, Low, Open Approach (ICD-10-PCS; principal; 2021-02-15 12:35)
DX: O42.013 Preterm premature rupture of membranes, onset of labor within 24 hours of rupture, third trimester (principal); O45.93 Premature separation of placenta, unspecified, third trimester; O99.354 Diseases of the nervous system complicating childbirth; Z3A.36 36 weeks gestation of pregnancy; O99.344 Other mental disorders complicating childbirth; F41.9 Anxiety disorder, unspecified; F42.9 Obsessive-compulsive disorder, unspecified; G43.909 Migraine, unspecified, not intractable, without status migrainosus; O76 Abnormality in fetal heart rate and rhythm complicating labor and delivery; Z37.0 Single live birth

== ENCOUNTER 2021-04-18 12:50 | Emergency (ER) | payer OTHER ==
[~2021-04-18] VITALS: Ht 172.7 cm; Wt 72.7 kg
[~2021-04-18 12:50] MED LIST changes: +DOK1CAP4 PO; +IBUP80TA PO; +PRENTAB9 PO
[2021-04-18 12:51] VITALS: BP 115/71
== END 2021-04-18 14:22 | disposition left against medical advice (07) ==
LOC: M ED 12:50
DX: Z53.21 Procedure and treatment not carried out due to patient leaving prior to being seen by health care provider (principal)

== ENCOUNTER → 2021-04-28 | Outpatient (CLI) | payer OTHER | LOC: M LABSMTC 09:43 | PROVIDERS: ATTEND Anesthesiology | DX: Z01.818 Encounter for other preprocedural examination (principal); Z11.52 Encounter for screening for COVID-19 ==

== ENCOUNTER 2021-05-01 15:45 | Emergency (ER) | payer OTHER ==
[~2021-05-01] VITALS: Ht 172.7 cm; Wt 70.6 kg
[2021-05-01] MEDS ORDERED: LIDOCAINE 1% MDV 20ML VIAL SC ONE (16:30)
[2021-05-01] MEDS ORDERED: BOOSTRIX/ADACEL VACCINE (DIPHTH/PERTUSS/ACELL/TETANUS) 0.5ML SYR IM ONE (16:30)
[2021-05-01] MEDS ORDERED: NEOSPORIN OINT 0.9 GM PKT TOP ONE (16:30)
[2021-05-01 17:45] VITALS: BP 112/65
== END 2021-05-01 17:46 | disposition home or self-care (01) ==
LOC: M ED 15:45
DX: S61.411A Laceration without foreign body of right hand, initial encounter (principal); W26.0XXA Contact with knife, initial encounter; Y92.9 Unspecified place or not applicable; Y93.9 Activity, unspecified; Y99.9 Unspecified external cause status; Z79.899 Other long term (current) drug therapy

== ENCOUNTER 2021-05-03 14:59 | Day surgery (SDC) | payer OTHER ==
[~2021-05-03] VITALS: Ht 172.7 cm; Wt 69.3 kg
[~2021-05-03 14:59] MED LIST changes: +AMPICILLIN SOD/SULBACTAM SOD 3 GM in D5W MINI-BAG PLUS 100 ML IV ONE; +CelecoXIB 400 MG CAP PO ONE; +LIDOCAINE 1% MDV 20ML VIAL SQ PRN; +LR 1,000 ML IV ONE
[2021-05-03] MEDS ORDERED: BUPIVACAINE HCL 0.25% 30ML VIAL As Ordered ONE (16:27)
[2021-05-03] MEDS ORDERED: LIDOCAINE 1% SDV 30ML VIAL As Ordered ONE (16:27)
[2021-05-03] MEDS ORDERED: fentaNYL 250 MCG/5 ML INJECTION (J3010) As Ordered ONE (17:05)
[2021-05-03] MEDS ORDERED: ONDANSETRON 4MG/2ML VIAL As Ordered ONE (17:05)
[2021-05-03] MEDS ORDERED: propofoL 200 MG/20 ML VIAL As Ordered ONE (17:05)
[2021-05-03] MEDS ORDERED: dexameTHASONE 4 MG/ML 1ML VIAL (J1100 PER 1MG) As Ordered ONE (17:05)
[2021-05-03] MEDS ORDERED: ROCURONIUM BROMIDE 50 MG/5 ML VIAL As Ordered ONE (17:05)
[2021-05-03] MEDS ORDERED: KETOROLAC 60MG 2ML VIAL As Ordered ONE (17:05)
[2021-05-03] MEDS ORDERED: LIDOCAINE 2% 100MG/5ML SDV (FOR ANES.) As Ordered ONE (17:05)
[2021-05-03] MEDS ORDERED: MIDAZOLAM INJ 2MG/2ML VIAL (J2250 PER 1MG) As Ordered ONE (17:05)
[2021-05-03] MEDS ORDERED: SUGAMMADEX SODIUM 500 MG/5 ML VIAL (BRIDION) As Ordered ONE (17:06)
[2021-05-03] MEDS ORDERED: ACETAMINOPHEN 1000MG 100ML IV BTL (OFIRMEV) (J0131 PER 10MG) As Ordered ONE (17:20)
[2021-05-03] MEDS ORDERED: oxyCODONE 5MG TAB PO PRN (18:50)
[2021-05-03] MEDS ORDERED: LR 1,000 ML IV SCH (18:50)
[2021-05-03] MEDS ORDERED: KETOROLAC 30 MG/ML 1ML VIAL IV PRN (18:50)
[2021-05-03] MEDS ORDERED: HYDROMORPHONE HCL 0.5 MG/ 0.5 ML SYRINGE (J1170 PER 1) IV PRN (18:50)
[2021-05-03] MEDS ORDERED: fentaNYL 100 MCG/2 ML INJECTION (J3010) IV PRN (18:50)
[2021-05-03] MEDS ORDERED: ONDANSETRON 4MG/2ML VIAL IV PRN (18:50)
[2021-05-03] MEDS ORDERED: PERCOCET 5MG/325MG TAB PO PRN (18:50)
[2021-05-03 19:53] VITALS: BP 101/60
== END 2021-05-03 19:56 | disposition home or self-care (01) ==
LOC: M SDC 14:59
PROVIDERS: ATTEND Surgery
DX: K81.0 Acute cholecystitis (principal); F41.9 Anxiety disorder, unspecified; F43.10 Post-traumatic stress disorder, unspecified; Z79.899 Other long term (current) drug therapy
CPT/HCPCS: 47562; 81025; 88304; J0131; J1100; J1885; J2250; J2405; J3010